=== PATIENT | female | born 1955 | race Hispanic/Latino ===

== ENCOUNTER 2019-11-07 12:04 | Emergency (ER) | payer OTHER ==
[2019-11-07 12:46] LABS: BASOPHILS % (AUTO) 1.1 % (0.0-5.0); EOSINOPHILS % (AUTO) 2.2 % (0.0-8.0); HEMATOCRIT 39.3 % (36-48); LYMPHOCYTES % (AUTO) 33.8 % (21.0-51.0); MEAN CORPUSCULAR HEMOGLOBIN 31.9 pg (27.0-33.0); MEAN CORPUSCULAR HGB CONC 34.9 g/dL (32.0-36.0); MEAN CORPUSCULAR VOLUME 91.4 fL (79-99); MONOCYTES % (AUTO) 5.9 % (3.0-13.0); NEUTROPHILS % (AUTO) 56.6 % (40.0-77.0); PLATELET COUNT (AUTO) 233 K/uL (130-400); RED CELL DISTRIBUTION WIDTH 15.3 % (11.0-15.5); WHITE BLOOD COUNT (AUTO) 7.1 K/uL (4.8-10.8)
[2019-11-07 12:53] LABS: CREATININE 1.3 mg/dL (0.5-1.5); POTASSIUM 3.6 mmol/L (3.5-5.1)
[2019-11-07 13:07] LABS: ALBUMIN 3.8 g/dL (3.5-5.0); BILIRUBIN,TOTAL 0.3 mg/dL (0.2-1.0); THYROID STIMULATING HORMONE 88.66 uIU/mL (0.36-3.74); TOTAL PROTEIN, SERUM 7.2 g/dL (6.0-8.3)
[2019-11-07 13:10] LABS: INR 1.04 (0.85-1.15); PARTIAL THROMBOPLASTIN TIME 30.3 SEC (26.3-35.5); PROTHROMBIN TIME 11.2 SEC (9.6-11.6)
== END 2019-11-07 15:34 | disposition home or self-care (01) ==
LOC: EDH 12:04
DX: E03.9 Hypothyroidism, unspecified (principal); I10 Essential (primary) hypertension; Z98.890 Other specified postprocedural states; Z90.49 Acquired absence of other specified parts of digestive tract; Z72.0 Tobacco use
CPT/HCPCS: 36415; 70450; 71045; 80053; 84443; 85025; 85610; 85730; 93005

== ENCOUNTER 2021-01-24 14:18 | Inpatient (IN) | payer SELFPAY ==
[~2021-01-24] VITALS: Ht 165.1 cm; Wt 83.7 kg
[2021-01-24 14:44] LABS: BASOPHILS % (AUTO) 0.9 % (0.0-5.0); EOSINOPHILS % (AUTO) 1.9 % (0.0-8.0); HEMATOCRIT 40.9 % (36-48); LYMPHOCYTES % (AUTO) 25.5 % (21.0-51.0); MEAN CORPUSCULAR HEMOGLOBIN 30.9 pg (27.0-33.0); MEAN CORPUSCULAR HGB CONC 33.3 g/dL (32.0-36.0); MONOCYTES % (AUTO) 9.2 % (3.0-13.0); NEUTROPHILS % (AUTO) 62.4 % (40.0-77.0); PLATELET COUNT (AUTO) 236 K/uL (130-400); RED CELL DISTRIBUTION WIDTH 13.8 % (11.0-15.5); WHITE BLOOD COUNT (AUTO) 7.5 K/uL (4.8-10.8)
[2021-01-24 14:53] LABS: POTASSIUM 3.8 mmol/L (3.5-5.1)
[2021-01-24 14:56] LABS: INR 1.02 (0.85-1.15); PROTHROMBIN TIME 11.1 SEC (9.6-11.6)
[2021-01-24 14:58] LABS: PARTIAL THROMBOPLASTIN TIME 26.1 SEC (26.3-35.5)
[2021-01-24] MEDS ORDERED: METOPROLOL TARTRATE 1 MG/ML 5ML VIAL IV ONE (15:00)
[2021-01-24 15:01] LABS: ALBUMIN 3.5 g/dL (3.5-5.0); BILIRUBIN,TOTAL 0.3 mg/dL (0.2-1.0)
[2021-01-24 15:13] LABS: B-TYPE NATRIURETIC PEPTIDE 137 pg/mL (0-100)
[2021-01-24] MEDS ORDERED: ONDANSETRON 4MG INJ IVP SCH (15:30)
[2021-01-24] MEDS ORDERED: ASPIRIN 325MG EC TAB PO SCH (15:30)
[2021-01-24] MEDS ORDERED: NITROGLYCERIN 1GM OINT 1 INCH/1GM TD SCH ×2 (15:30→17:00)
[2021-01-24] MEDS ORDERED: FENTANYL CITRATE PF 50 MCG/1 ML 2ML VIAL IVP SCH (15:30)
[2021-01-24] MEDS ORDERED: IOHEXOL 350 MG/ML 100ML INFUS..BTL IV ONE (16:03)
[2021-01-24] MEDS ORDERED: ACETAMINOPHEN 325 MG TAB PO PRN (17:00)
[2021-01-24] MEDS ORDERED: ATORVASTATIN 40 MG TABLET PO ONE (17:00)
[2021-01-24] MEDS ORDERED: METOPROLOL TARTRATE 50 MG TAB PO ONE (17:00)
[2021-01-24] MEDS ORDERED: HEPARIN 25,000 UNITS/250ML D5W 250 ML IV SCH (17:00)
[2021-01-24 17:05] LABS: HEMOGLOBIN A1C 5.8 % (4.0-6.0)
[2021-01-24 17:16] LABS: CHOLESTEROL 283 mg/dL (<200); HDL CHOLESTEROL 86 mg/dL (35-85); LDL DIRECT 168 mg/dL (0-99); TRIGLYCERIDES 85 mg/dL (30-200)
[2021-01-24 19:15] LABS: APPEARANCE,URINE Clear (CLEAR); BILIRUBIN,URINE Negative (NEGATIVE); COLOR,URINE Yellow (YELLOW); GLUCOSE, URINE (UA) Negative (NEGATIVE); KETONES,URINE Negative (NEGATIVE); LEUKOCYTE ESTERASE ,URINE Small (NEGATIVE); NITRATE,URINE Negative (NEGATIVE); OCCULT BLOOD,URINE Nonhemolyzed Trace (NEGATIVE); PH,URINE 6.5 (5.0-8.0); PROTEIN,URINE Negative (NEGATIVE)
[2021-01-24 19:27] LABS: BACTERIA,URINE Few /HPF (None Seen); SQUAMOUS EPITHELIAL CELL,UR Few /HPF (0-2)
[2021-01-24] MEDS ORDERED: DiphenhydrAMINE HCL 50 MG/ML VIAL IVP PRN (19:30)
[2021-01-24] MEDS ORDERED: NITROGLYCERIN 50MG/D5W 250ML 250 BOT IV PRN (20:00)
[2021-01-24] MEDS: 0.9%NACL 1000ML 1,000 ML IV SCH (20:04)
[2021-01-24] MEDS: ATORVASTATIN 40 MG TABLET PO SCH (20:49)
[2021-01-24] MEDS: METOPROLOL TARTRATE 25 MG TAB PO SCH (20:56)
[2021-01-24] MEDS: FAMOTIDINE 20MG VIAL IV SCH (20:56)
[2021-01-25] VITALS (20 sets, daily range): BP systolic 113–154; BP diastolic 60–87
[2021-01-25] MEDS: 0.9%NACL 1000ML 1,000 ML IV SCH ×2 (05:37→14:53)
[2021-01-25 05:43] LABS: BASOPHILS % (AUTO) 0.9 % (0.0-5.0); EOSINOPHILS % (AUTO) 1.7 % (0.0-8.0); HEMATOCRIT 35.7 % (36-48); LYMPHOCYTES % (AUTO) 21.9 % (21.0-51.0); MEAN CORPUSCULAR HGB CONC 33.3 g/dL (32.0-36.0); NEUTROPHILS % (AUTO) 65.3 % (40.0-77.0); PLATELET COUNT (AUTO) 201 K/uL (130-400); RED BLOOD CELL COUNT(AUTO) 3.84 MIL/uL (4.00-5.50); WHITE BLOOD COUNT (AUTO) 8.5 K/uL (4.8-10.8)
[2021-01-25 05:58] LABS: ALBUMIN 3.1 g/dL (3.5-5.0); BILIRUBIN,TOTAL 0.3 mg/dL (0.2-1.0); CREATININE 0.9 mg/dL (0.5-1.5); POTASSIUM 3.7 mmol/L (3.5-5.1)
[2021-01-25 06:03] LABS: INR 1.09 (0.85-1.15); PROTHROMBIN TIME 11.8 SEC (9.6-11.6)
[2021-01-25] MEDS: METOPROLOL TARTRATE 25 MG TAB PO SCH ×2 (07:56→23:10)
[2021-01-25] MEDS: ASPIRIN 325MG TAB PO SCH (07:56)
[2021-01-25] MEDS: FAMOTIDINE 20MG VIAL IV SCH ×2 (07:56→23:10)
[2021-01-25] MEDS ORDERED: IOHEXOL-350 50ML VIAL IV ONE (17:41)
[2021-01-25] MEDS ORDERED: NITROGLYCERIN 50MG VIAL IV ONE (17:41)
[2021-01-25] MEDS ORDERED: LIDOCAINE HCL 400MG/20ML VIAL ONE (17:41)
[2021-01-25] MEDS ORDERED: IOHEXOL 350 MG/ML 100ML INFUS..BTL IV ONE ×2 (17:41→18:28)
[2021-01-25] MEDS ORDERED: FENTANYL CITRATE PF 50 MCG/1 ML 2ML VIAL ONE (18:10)
[2021-01-25] MEDS ORDERED: MIDAZOLAM HCL 1 MG/ML 2ML VIAL ONE ×2 (18:10→18:31)
[2021-01-25] MEDS ORDERED: HEPARIN 1,000 UNIT VIAL ONE (18:11)
[2021-01-25] MEDS ORDERED: BIVALIRUDIN 250 MG/VIAL IV ONE (18:28)
[2021-01-25] MEDS ORDERED: ATROPINE 1MG SYG IVP ONE (19:22)
[2021-01-25] MEDS ORDERED: TICAGRELOR 90 MG TABLET ONE (19:28)
[2021-01-25] MEDS ORDERED: ASPIRIN 325MG EC TAB PO ONE (19:28)
[2021-01-25] MEDS ORDERED: 0.9%NACL 1000ML 1,000 ML IV SCH (20:00)
[2021-01-25] MEDS ORDERED: MORPHINE 2 MG SYG IVP ONE (22:00)
[2021-01-25] MEDS: TICAGRELOR 90 MG TABLET PO SCH (23:06)
[2021-01-25] MEDS: ATORVASTATIN 40 MG TABLET PO SCH (23:10)
[2021-01-26] VITALS (21 sets, daily range): BP systolic 121–153; BP diastolic 67–103
[2021-01-26] MEDS ORDERED: MORPHINE 2 MG SYG IVP ONE (00:30)
[2021-01-26] MEDS ORDERED: LEVO150 PO (01:59)
[2021-01-26] MEDS ORDERED: HYDR-4154 PO (01:59)
[2021-01-26] MEDS: 0.9%NACL 1000ML 1,000 ML IV SCH ×2 (03:31→08:25)
[2021-01-26 04:32] LABS: HEMATOCRIT 35.9 % (36-48); MEAN CORPUSCULAR HEMOGLOBIN 31.1 pg (27.0-33.0); MEAN CORPUSCULAR HGB CONC 32.6 g/dL (32.0-36.0); MEAN CORPUSCULAR VOLUME 95.5 fL (79-99); RED BLOOD CELL COUNT(AUTO) 3.76 MIL/uL (4.00-5.50); RED CELL DISTRIBUTION WIDTH 13.7 % (11.0-15.5)
[2021-01-26 04:47] LABS: CREATININE 0.8 mg/dL (0.5-1.5); MAGNESIUM 1.6 mg/dL (1.80-2.40); POTASSIUM 3.7 mmol/L (3.5-5.1)
[2021-01-26] MEDS: HYDROCODONE/ACETAMINOPHEN 5/325 MG TAB PO PRN ×3 (05:39→20:04)
[2021-01-26] MEDS: FAMOTIDINE 20MG VIAL IV SCH ×2 (08:24→20:03)
[2021-01-26] MEDS: METOPROLOL TARTRATE 25 MG TAB PO SCH ×2 (08:24→20:03)
[2021-01-26] MEDS: TICAGRELOR 90 MG TABLET PO SCH ×2 (08:24→20:03)
[2021-01-26] MEDS: ASPIRIN 325MG TAB PO SCH (08:24)
[2021-01-26] MEDS: MAGNESIUM 2GM PREMIX 50ML 50 ML IV PRN (10:18)
[2021-01-26] MEDS: ATORVASTATIN 40 MG TABLET PO SCH (20:03)
[2021-01-27 04:16] VITALS: BP 140/69
[2021-01-27 04:17] LABS: BASOPHILS % (AUTO) 0.9 % (0.0-5.0); EOSINOPHILS % (AUTO) 1.1 % (0.0-8.0); HEMATOCRIT 35.5 % (36-48); MEAN CORPUSCULAR HEMOGLOBIN 30.9 pg (27.0-33.0); MEAN CORPUSCULAR HGB CONC 32.4 g/dL (32.0-36.0); MEAN CORPUSCULAR VOLUME 95.4 fL (79-99); MONOCYTES % (AUTO) 12.3 % (3.0-13.0); NEUTROPHILS % (AUTO) 65.3 % (40.0-77.0); PLATELET COUNT (AUTO) 193 K/uL (130-400); RED BLOOD CELL COUNT(AUTO) 3.72 MIL/uL (4.00-5.50); RED CELL DISTRIBUTION WIDTH 13.6 % (11.0-15.5)
[2021-01-27 04:43] LABS: CREATININE 0.8 mg/dL (0.5-1.5); MAGNESIUM 1.7 mg/dL (1.80-2.40); POTASSIUM 3.5 mmol/L (3.5-5.1); THYROID STIMULATING HORMONE 13.79 uIU/mL (0.36-3.74)
[2021-01-27] MEDS: HYDROCODONE/ACETAMINOPHEN 5/325 MG TAB PO PRN ×3 (05:28→17:10)
[2021-01-27] MEDS: MAGNESIUM 2GM PREMIX 50ML 50 ML IV PRN (05:29)
[2021-01-27] MEDS ORDERED: LEVOTHYROXINE 100 MCG TABLET PO SCH (06:30)
[2021-01-27 07:31] VITALS: BP 160/95
[2021-01-27] MEDS ORDERED: FAMOTIDINE 20MG TAB ONE (08:31)
[2021-01-27] MEDS: ASPIRIN 325MG TAB PO SCH (08:33)
[2021-01-27] MEDS: TICAGRELOR 90 MG TABLET PO SCH ×2 (08:33→17:43)
[2021-01-27] MEDS: METOPROLOL TARTRATE 25 MG TAB PO SCH ×2 (08:33→17:43)
[2021-01-27] MEDS ORDERED: HYDRALAZINE 25MG TABLET PO SCH (09:00)
[2021-01-27] MEDS ORDERED: FAMOTIDINE 20MG TAB PO SCH (09:00)
[2021-01-27] MEDS ORDERED: KCL 20 MEQ ERTAB PO SCH (11:00)
[2021-01-27 11:45] VITALS: BP 130/86
[2021-01-27 15:05] VITALS: BP 127/78
[2021-01-27] MEDS ORDERED: ATOR40TA69 PO (16:28)
[2021-01-27] MEDS ORDERED: METO25TA6 PO (16:28)
[2021-01-27] MEDS ORDERED: ASPI-1005 PO (16:28)
[2021-01-27] MEDS ORDERED: TICA90TA PO (16:28)
== END 2021-01-27 18:15 | disposition home or self-care (01) | DRG 247 ==
LOC: EDH 14:18 → EDHIP 14:19 → UNDOADMIN 14:19 → 2DH 01-25 21:51
PROVIDERS: ADMIT Internal Medicine; ATTEND Internal Medicine
PROC: 027036Z Dilation of Coronary Artery, One Artery with Three Drug-eluting Intraluminal Devices, Percutaneous Approach (ICD-10-PCS; principal; 2021-01-24)
PROC: 4A023N7 Measurement of Cardiac Sampling and Pressure, Left Heart, Percutaneous Approach (ICD-10-PCS; 2021-01-24)
PROC: B2111ZZ Fluoroscopy of Multiple Coronary Arteries using Low Osmolar Contrast (ICD-10-PCS; 2021-01-24)
PROC: B2151ZZ Fluoroscopy of Left Heart using Low Osmolar Contrast (ICD-10-PCS; 2021-01-24)
DX: I21.4 Non-ST elevation (NSTEMI) myocardial infarction (principal); I16.0 Hypertensive urgency; I10 Essential (primary) hypertension; E78.5 Hyperlipidemia, unspecified; E03.9 Hypothyroidism, unspecified; F17.210 Nicotine dependence, cigarettes, uncomplicated; F32.A Depression, unspecified; E83.42 Hypomagnesemia; E87.6 Hypokalemia; I25.2 Old myocardial infarction; Z79.899 Other long term (current) drug therapy
CPT/HCPCS: 36415; 71045; 71275; 80048; 80053; 80061; 81001; 82550; 83036; 83690; 83735; 83880; 84439; 84443; 84484; 85025; 85027; 85378; 85610; 85730; 93005; 93306; 93356; 93458; 99156; 99157; 99291; C1760; C1769; C1887; C1894; C9606; G0378; J0461; J0583; J1644; J2250; J2405; J3010; J3475; J3490; J7030; Q9967

== ENCOUNTER → 2023-03-17 | Outpatient (CLI) | payer OTHER ==
[~2023-03-17] MED LIST: ASPI-1005 PO; ATOR40TA69 PO; HYDR50TA37 PO; LEVO150 PO; METO25TA6 PO; TICA90TA PO
== END | disposition home or self-care (01) ==
LOC: RAH 11:19
PROVIDERS: ATTEND Internal Medicine
DX: Z12.31 Encounter for screening mammogram for malignant neoplasm of breast (principal)
CPT/HCPCS: 77067